=== PATIENT | female | born 2000 | race Two or more races ===

== ENCOUNTER 2025-04-16 05:21 | Emergency (ER) | payer OTHER ==
[~2025-04-16] VITALS: Ht 167.6 cm; Wt 52.6 kg
[2025-04-16] MEDS ORDERED: PANTOPRAZOLE 40 MG VIAL ONE (06:34)
[2025-04-16] MEDS ORDERED: ONDANSETRON HCL/PF 4 MG/2 ML VIAL ONE ×2 (06:34→08:36)
[2025-04-16 06:43] LABS: PLATELET COUNT (AUTO) 294 K/uL (150-450); RED BLOOD CELL COUNT(AUTO) 4.82 MIL/uL (4.0-5.2); RED CELL DISTRIBUTION WIDTH 13.2 % (11.5-15.0); WHITE BLOOD COUNT (AUTO) 9.7 K/uL (4.3-11.0)
[2025-04-16] MEDS: ONDANSETRON HCL/PF 4 MG/2 ML VIAL IVP ONE (06:48)
[2025-04-16] MEDS: PANTOPRAZOLE 40 MG VIAL IV ONE (06:48)
[2025-04-16] MEDS: IV NS 0.9% 1,000 ML BAG IV ONE ×2 (06:48→08:26)
[2025-04-16 06:49] LABS: CALCIUM, SERUM 9.1 mg/dL (8.5-10.1); CREATININE 0.9 mg/dL (0.6-1.3); SODIUM SERUM 137.0 mmol/L (136-145); UREA NITROGEN, BLOOD 13.0 mg/dL (7-18)
[2025-04-16 06:56] LABS: ASPARTATE AMINOTRANSFERASE 34.0 U/L (15-37); TOTAL PROTEIN, SERUM 8.0 g/dL (6.4-8.2)
[2025-04-16 07:07] LABS: PREGNANCY TEST URINE QUAL NEGATIVE (NEGATIVE)
[2025-04-16] MEDS ORDERED: HALOPERIDOL LACTATE INJ 5 MG/ML VIAL ONE (07:17)
[2025-04-16] MEDS: HALOPERIDOL LACTATE INJ 5 MG/ML VIAL IM ONE (07:20)
[2025-04-16 07:46] LABS: ADD URINE CULTURE NO; APPEARANCE,URINE SLIGHTLY CLOUDY (CLEAR); BLOOD, URINE NEGATIVE Ery/uL (NEGATIVE); LEUKOCYTE ESTERASE ,URINE NEGATIVE (NEGATIVE); NITRITE, URINE NEGATIVE (NEGATIVE); PREGNANCY TEST URINE QUAL NEGATIVE (NEGATIVE); SQUAMOUS EPITHELIAL CELL,UR Moderate /HPF (None Seen); UGLUCOSE NEGATIVE (NEGATIVE)
[2025-04-16 08:14] LABS: AMPHETAMINE, URINE NEGATIVE (NEGATIVE); BARBITURATE, URINE NEGATIVE (NEGATIVE); BENZODIAZEPINE, URINE NEGATIVE (NEGATIVE); COCCAINE, URINE NEGATIVE (NEGATIVE); OPIATE, URINE NEGATIVE (NEGATIVE)
[2025-04-16 08:21] LABS: CANNABINOID, URINE POSITIVE (NEGATIVE)
[2025-04-16] MEDS ORDERED: POTASSIUM CHLORIDE 20 MEQ TAB.PRT.SR PO ONE (08:22)
[2025-04-16] MEDS: POTASSIUM CHLORIDE 20 MEQ TAB.PRT.SR PO ONE (08:26)
[2025-04-16] MEDS: ONDANSETRON HCL/PF 4 MG/2 ML VIAL IV ONE (08:44)
[2025-04-16] MEDS ORDERED: ONDA4TAB5 PO (09:26)
[2025-04-16 09:51] VITALS: BP 128/81; TEMP 98.1; O2SAT 99
== END 2025-04-16 09:52 | disposition home or self-care (01) ==
LOC: ER 05:35
DX: R11.2 Nausea with vomiting, unspecified (principal); R10.9 Unspecified abdominal pain; E86.0 Dehydration; E87.6 Hypokalemia; Z87.19 Personal history of other diseases of the digestive system
CPT/HCPCS: 99285; 96374; 76700; 96361; 96375; 96376; 85025; 80048; 83690; 80076; 36415; 80307; 81001; 96372; 84703 ×2; J1630; J2405 ×2; J7030 ×2; J2470